=== PATIENT | female | born 1960 | race Caucasian/White ===

== ENCOUNTER 2017-03-26 10:40 | Emergency (ER) | payer BC ==
[2017-03-26] MEDS: PERCOCET 5MG/325MG TAB PO (11:09)
== END 2017-03-26 12:24 | disposition home or self-care (01) ==
LOC: M ED 10:40
DX: S60.222A Contusion of left hand, initial encounter (principal); S52.592A Other fractures of lower end of left radius, initial encounter for closed fracture; W00.9XXA Unspecified fall due to ice and snow, initial encounter; Y92.009 Unspecified place in unspecified non-institutional (private) residence as the place of occurrence of the external cause; Y93.89 Activity, other specified; Y99.8 Other external cause status; F41.9 Anxiety disorder, unspecified; Z79.899 Other long term (current) drug therapy; Z88.1 Allergy status to other antibiotic agents; Z88.2 Allergy status to sulfonamides
CPT/HCPCS: 73110

== ENCOUNTER 2025-01-09 10:38 | Emergency (ER) | payer BC ==
[~2025-01-09] VITALS: Ht 170.2 cm; Wt 90.9 kg
[~2025-01-09 10:38] MED LIST: OXYC1TAB23 PO; SERT-138 PO
[2025-01-09] MEDS ORDERED: FLUO-365 PO (11:44)
[2025-01-09] MEDS ORDERED: SPIR50TA4 PO (11:44)
[2025-01-09] MEDS ORDERED: BUDE3CAP (11:44)
[2025-01-09] MEDS ORDERED: ATOR1TAB19 PO (11:44)
[2025-01-09] MEDS ORDERED: DENO60SY2 (11:44)
[2025-01-09] MEDS: ACETAMINOPHEN 500 MG TAB PO ONE (13:16)
[2025-01-09 14:01] VITALS: BP 177/77; TEMP 96.7; O2SAT 99
[2025-01-14] MEDS ORDERED: ALEV220T22 PO (12:01)
[2025-01-14] MEDS ORDERED: ACET-907 PO (12:01)
== END 2025-01-09 14:10 | disposition home or self-care (01) ==
LOC: M ED 10:38
DX: S52.571A Other intraarticular fracture of lower end of right radius, initial encounter for closed fracture (principal); S52.611A Displaced fracture of right ulna styloid process, initial encounter for closed fracture; Y92.019 Unspecified place in single-family (private) house as the place of occurrence of the external cause; Y93.9 Activity, unspecified; Y99.9 Unspecified external cause status; W10.8XXA Fall (on) (from) other stairs and steps, initial encounter; Z88.2 Allergy status to sulfonamides; Z79.899 Other long term (current) drug therapy

== ENCOUNTER 2025-01-16 11:37 | Day surgery (SDC) | payer BC ==
[~2025-01-16] VITALS: Ht 170.2 cm; Wt 93.0 kg
[~2025-01-16 11:37] MED LIST changes: +ACET-907 PO; +ALEV220T22 PO; +ATOR1TAB19 PO; +BUDE3CAP; +DENO60SY2; +FLUO-365 PO; +KETOROLAC 30 MG/ML 1 ML VIAL As Ordered ONE; +LIDOCAINE 2% 100 MG/5 ML SDV (FOR ANES.) As Ordered ONE; +ONDANSETRON 4MG/2ML VIAL As Ordered ONE; +SPIR50TA4 PO; +dexAMETHasone 4 MG/ML 1 ML VIAL As Ordered ONE
[2025-01-16] MEDS: dexAMETHasone 10 MG/1 ML VIAL PRES.FREE PN ONE (13:31)
[2025-01-16] MEDS: ROPIvacaine 0.5% 30ML VIAL PN ONE (13:31)
[2025-01-16] MEDS: MIDAZOLAM INJ 2 MG/2 ML VIAL IV PRN (13:31)
[2025-01-16] MEDS: ceFAZolin SOD 2 GM IV ONCE IV ONE (14:22)
[2025-01-16] MEDS ORDERED: ACETAMINOPHEN 1000MG/100ML IV BAG As Ordered ONE (14:37)
[2025-01-16] MEDS ORDERED: PERC5TAB12 PO (16:11)
[2025-01-16] MEDS ORDERED: ACET-683 PO (16:11)
[2025-01-16 16:35] VITALS: BP 143/76; TEMP 97.4; O2SAT 97
== END 2025-01-16 16:45 | disposition home or self-care (01) ==
LOC: M SDC 11:37
PROVIDERS: ATTEND Orthopaedic Surgery Hand Surgery
DX: S52.571A Other intraarticular fracture of lower end of right radius, initial encounter for closed fracture (principal); W18.49XA Other slipping, tripping and stumbling without falling, initial encounter; Y93.89 Activity, other specified; Y92.9 Unspecified place or not applicable
CPT/HCPCS: 25608; 76000; 93005; C1713; J0131; J0665; J0688; J1100; J1885; J2250; J2405; J2795; J3010

== ENCOUNTER → 2025-01-28 | Outpatient (CLI) | payer BC ==
[~2025-01-28] MED LIST changes: +ACET-683 PO; -KETOROLAC 30 MG/ML 1 ML VIAL As Ordered ONE; -LIDOCAINE 2% 100 MG/5 ML SDV (FOR ANES.) As Ordered ONE; -ONDANSETRON 4MG/2ML VIAL As Ordered ONE; +PERC5TAB12 PO; -dexAMETHasone 4 MG/ML 1 ML VIAL As Ordered ONE
== END ==
LOC: M SOG 08:29
PROVIDERS: ATTEND Physician Assistant
DX: S52.571A Other intraarticular fracture of lower end of right radius, initial encounter for closed fracture (principal)

== ENCOUNTER → 2025-02-01 | Outpatient (CLI) | payer BC | LOC: M SOG 07:41 | PROVIDERS: ATTEND Physician Assistant | DX: S52.571A Other intraarticular fracture of lower end of right radius, initial encounter for closed fracture (principal); W18.30XA Fall on same level, unspecified, initial encounter; Y92.008 Other place in unspecified non-institutional (private) residence as the place of occurrence of the external cause ==